=== PATIENT | male | born 1965 | race Caucasian/White ===

== ENCOUNTER 2024-05-31 01:27 | Emergency (ER) | payer OTHER, SELFPAY ==
[2024-05-31 01:33] VITALS: BP 166/96
--- NOTE | 2024-05-31 01:54 | ED.GENMED ---
History of Present Illness
<Keenan Elliott DO - Last Filed: 05/31/24 01:56>
General
Chief Complaint: Nasal Problem
Time Seen by Provider: 05/31/24 01:38
<DEMI Jane - Last Filed: 05/31/24 02:39>
General
Source: patient
Exam Limitations: none
History of Present Illness
History of Present Illness:
This is a 58 year old male that comes in with c/o nose bleed. states that he was awakened from sleep with the nose bleed and it started about a half hour ago. States that this happened to him about 3 years go and it was cauterized. States that he is
only taking a baby aspirin and he did not take it yesterday. Denies any fever, chills, chest pain, SOB, abd pain, nausea, vomiting, diarrhea, headache, dizziness, or urinary burning.
Past History
<DEMI Jane - Last Filed: 05/31/24 02:39>
Past History
ED Past Medical History: HTN, NIDDM, Renal failure and Other (IgA nephropathy)
ED Past Surgical History: Orthopedic, Urological (Kidney trasplant) and Other (Kidney transplant)
Social History
Tobacco: Non-smoker
Alcohol: Occasional
Drug: None
Personal:
Living: with family
Employment: Employed
Family History
Family History: Other
Review of Systems
<DEMI Jane - Last Filed: 05/31/24 02:39>
Review of Systems
All Other Systems: ROS reviewed and negative except as documented in HPI and ROS
Constitutional: Reports no symptoms; Denies fever or chills
EENT: Reports other (Nose bleed)
Respiratory: Reports no symptoms
Cardiac: Reports no symptoms
ABD/GI: Reports no symptoms
: Reports no symptoms
Musculoskeletal: Reports no symptoms
Skin: Reports no symptoms
Neurological: Reports no symptoms
Psychiatric: Reports no symptoms
Phy Exam
<DEMI Jane - Last Filed: 05/31/24 02:39>
General Physical Exam
General Presentation: no apparent distress
General age: appears stated age
General Skin: warm and dry
General Habitus: normal
General Mental: alert
General Hydration: appears well hydrated
ENT Exam
ENT Exam: other (Nose bleeding from left naries)
Eye Exam
Eye Exam: EOMI
Musculoskeletal Exam
Musculoskeletal Exam: full ROM
Skin Exam
Skin Exam: normal color, warm/dry and no rash
Psychiatric Exam
Psychiatric Exam: normal mood/affect
Course
<Keenan Elliott DO - Last Filed: 05/31/24 01:56>
Orders/Labs/Results
Orders:
Orders
05/31/24 01:50
Tranexamic Acid 1,000 mg .ROUTE .STK-MED ONE
Vital Signs
Initial and Last Documented VS:
Initial Vital Signs
Pulse Resp BP Pulse Ox
82 18 166/96 97
05/31/24 01:33 05/31/24 01:33 05/31/24 01:33 05/31/24 01:33
Last Documented Vital Signs
Temp Pulse Resp BP Pulse Ox
97.9 F 82 18 166/96 97
05/31/24 01:40 05/31/24 01:33 05/31/24 01:33 05/31/24 01:33 05/31/24 01:33
<DEMI Jane - Last Filed: 05/31/24 02:39>
Orders/Labs/Results
Orders:
Orders
05/31/24 01:50
Tranexamic Acid 1,000 mg .ROUTE .STK-MED ONE
Vital Signs
Initial and Last Documented VS:
Initial Vital Signs
Pulse Resp BP Pulse Ox
82 18 166/96 97
05/31/24 01:33 05/31/24 01:33 05/31/24 01:33 05/31/24 01:33
Last Documented Vital Signs
Temp Pulse Resp BP Pulse Ox
97.9 F 82 18 166/96 97
05/31/24 01:40 05/31/24 01:33 05/31/24 01:33 05/31/24 01:33 05/31/24 01:33
<DEMI Jane - Last Filed: 05/31/24 02:39>
MDM/Problems Addressed
Differential Diagnosis Includes:
Nose bleed
MDM/Problems Addressed:
This is a 58 year old male that comes in with c/o left sided nasal bleeding. States that he awoke form sleep with his nose bleeding. states that this happened 3 years ago and it was cauterized.
Dr. Elliott into see patient and TXA put on a cotton ball and place in the left nares.
Back into see patient. Patient had no further bleeding after the TXA. Small area noted on the nasal septum cauterized. Will recheck.
Into see patient. Patient has not had any further bleeding.Encouraged patient to use a q-tip with Vaseline to keep the nasal septum moist. Follow up with the family doctor. Return with any concerns.
Chronic conditions affecting care:
NA
Acute Exacerbation and/or Progression of Chronic Illness:
NA
<DEMI Jane - Last Filed: 05/31/24 02:39>
*Pulse Oximetry
Patient hypoxic: no
*EKG
Interpreted by ED Provider?: NA
Rate: EKG- N/A
*Program Administrator Interpretation
Rate: Program Administrator- N/A
*Critical Care Note
Total Time (30-74mins, 75-104mins- exclusive of procedures): Not Applicable
ED Attending Note
<Keenan Elliott DO - Last Filed: 05/31/24 01:56>
ED Attending Note
Patient seen and examined by attending physician: Yes
I performed the substantive portion of visit, reviewed & personally made and approve the management plan that is documented in note by myself or THEO.: Yes
I performed a history and physical exam of patient and discussed management with resident, I reviewed resident's note and agree with documented findings and plan of care.: Yes
ED Attending Note:
I evaluated the patient at bedside. I had the patient forcefully blow his nose and large amount of clots were removed from the left nostril. I then placed TXA soaked cotton and additional pressure was applied.
<DEMI Jane - Last Filed: 05/31/24 02:39>
-
Portions of this chart may have been created with voice recognition software.� Occasional wrong word or��sound alike� substitutions may have occurred due to the inherent limitations of voice recognition software.
Discharge Plan
Departure
Patient Disposition: Home (Routine Discharge)
Date of Disposition: 05/31/24
Time of Disposition: 02:36
Patient with high blood pressure during this ER visit?: Yes
Condition: Good
Covid-19: Not Applicable
Discharge Problem:
Nasal bleeding
Instructions: Nosebleeds (DC), BLOOD PRESSURE
Prescriptions:
No Action
lorazepam 0.5 MG tablet
1 mg PO Q6HPRN PRN (Reason: Spasms or insomnia) Qty: 30 0RF
Rx Instructions:
Take one tab by mouth daily as needed for muscle spasms or insomnia.
amlodipine 10 MG tablet
10 mg PO DAILY Qty: 30 3RF
Rx Instructions:
Take one tab by mouth daily.
gabapentin 100 MG capsule
200 mg PO HS Qty: 60 3RF
Rx Instructions:
Take two capsules (200mg) by mouth at bedtime daily.
labetalol 300 MG tablet
300 mg PO TID Qty: 90 3RF
Rx Instructions:
Take one tab by mouth three times daily.
aspirin 81 mg Tablet
81 mg PO DAILY
Activity Restrictions/Additional Instructions:
As discussed, please keep the nasal septum moist with a little vaseline on a Q-tip. Follow up with the family doctor for recheck. Please hold off on the baby aspirin today to given this area a change to clot and start to heal. IF YOU HAVE ANY OTHER
CONCERNS PLEASE RETURN TO THE EMEGENCY ROOM.
Interventions
Interventions:
*Risk Screen - Suicide Last Done: 05/31/24 01:29
*General Assessment Last Done: 05/31/24 01:29
*Neglect/Abuse Screening Last Done: 05/31/24 01:29
*ED COVID-19 Vaccine History Last Done: 05/31/24 01:33
Discharge Date and Time
Print Language: GEORGIAN
== END 2024-05-31 02:55 | disposition home or self-care (01) ==
LOC: EMR 01:27
PROVIDERS: EMERGENCY PHYSICIAN Emergency Medicine; FAMILY PHYSICIAN Internal Medicine
DX: R04.0 Epistaxis (principal); I10 Essential (primary) hypertension; E11.9 Type 2 diabetes mellitus without complications; Z94.0 Kidney transplant status
CPT/HCPCS: 30901; 99282

== ENCOUNTER → 2024-10-12 14:44 | Outpatient (REF) | payer OTHER, SELFPAY ==
[2024-10-12 16:08] LABS: PSA, Total - Screen 0.55 ng/ml (0.0-4.0)
== END ==
LOC: REG 14:44
PROVIDERS: ATTENDING PHYSICIAN Internal Medicine
DX: N40.0 Benign prostatic hyperplasia without lower urinary tract symptoms (principal); Z00.00 Encounter for general adult medical examination without abnormal findings
CPT/HCPCS: 36415; G0103

== ENCOUNTER 2024-12-14 06:15 | Day surgery (SDC) | payer OTHER, SELFPAY ==
[2024-12-14 12:26] LABS: Glucose - Point of Care 151 mg/dl (70-99)
== END 2024-12-14 16:07 | disposition home or self-care (01) ==
LOC: GI 06:15
PROVIDERS: ATTENDING PHYSICIAN Internal Medicine Gastroenterology
DX: Z12.11 Encounter for screening for malignant neoplasm of colon (principal); K64.8 Other hemorrhoids; K57.30 Diverticulosis of large intestine without perforation or abscess without bleeding; Z87.19 Personal history of other diseases of the digestive system; Z86.0100 Personal history of colon polyps, unspecified
CPT/HCPCS: 45380; 88305; 82962